=== PATIENT | female | born 1940 | race Caucasian/White ===

== ENCOUNTER 2017-01-24 11:59 | Outpatient (CLI) | payer MEDICARE, OTHER ==
--- NOTE | 2017-01-24 16:55 | CT Report ---
CT OF THE LUMBAR SPINE WITHOUT CONTRAST: 01/24/2017 CLINICAL INDICATION: Lumbar stenosis. TECHNIQUE: Axial CT images of the lumbar spine were obtained without intravenous contrast, following which sagittal and coronal reconstructions were performed. FINDINGS: Limited evaluation of the lung bases demonstrates atelectasis and emphysema. There has been posterior jake and pedicle screw fusion of L4 to L5, with discectomy changes. There is no evidence of compression fracture. The T12-L1 and L1-2 disks are unremarkable. At L2-3, there is mild broad-based disk bulge, without significant spinal or foraminal narrowing. At L3-4, there is moderate broad-based disk bulge, with facet and ligamentum flavum hypertrophy, prod ucing mild spinal stenosis and bilateral foraminal narrowing. At L4-5, there is osteophyte and a degree of rotatory scoliosis, producing predominantly right-sided foraminal narrowing. No spinal stenosis is seen. The L5-S1 disk demonstrates mild bulge, without significant spinal or foraminal narrowing. IMPRESSION: MILD SPINAL STENOSIS AT L3-4, DUE TO A COMBINATION OF DISK BULGE, FACET AND LIGAMENTUM F LAVUM HYPERTROPHY. POSTOPERATIVE CHANGES AT L4-5. In accordance with CT protocol optimization, one or more of the following dose reduction techniques w ere utilized for this exam: automated exposure control, adjustment of mA and/or KV based on patient size, or use of iterative reconstructive technique. JOB #: [id number] EXT JOB #:[id number]
== END 2017-01-24 12:00 | disposition home or self-care (01) ==
LOC: DI 11:59
PROVIDERS: ATTEND Student in an Organized Health Care Education/Training Program
DX: M51.86 Other intervertebral disc disorders, lumbar region (principal); M47.896 Other spondylosis, lumbar region; Z98.1 Arthrodesis status
CPT/HCPCS: 72131

== ENCOUNTER 2024-03-28 14:01 | Outpatient (CLI) | payer MEDICARE, OTHER | END 2024-03-28 23:59 | disposition short-term general hospital (02) | LOC: EMS 14:01 | DX: M25.552 Pain in left hip (principal); W01.0XXA Fall on same level from slipping, tripping and stumbling without subsequent striking against object, initial encounter; Y93.E6 Activity, residential relocation; Y92.008 Other place in unspecified non-institutional (private) residence as the place of occurrence of the external cause | CPT/HCPCS: A0425; A0429 ==